=== PATIENT | female | born 1980 | race Caucasian/White ===

== ENCOUNTER → 2017-01-30 | Outpatient (REF) | payer OTHER ==
[2017-01-30 12:20] LABS: BASO % 0.6 % (0.0-1.0); EOS # 0.2 K/mm3 (0.0-0.50); EOS % 2.3 % (0.0-3.0); LYMPH # 1.7 K/mm3 (1.5-4.5); LYMPH % 24.9 % (24.0-44.0); MEAN CORPUSCULAR HGB CONC 33.1 g/dl (32.0-36.5); MEAN CORPUSCULAR VOLUME 87.6 fl (80.0-96.0); MONO # 0.4 K/mm3 (0.0-0.8); MONO % 5.5 % (0.0-5.0); NEUTROPHILS # 4.3 K/mm3 (1.8-7.7); NEUTROPHILS % 65.8 % (36.0-66.0); WHITE BLOOD COUNT 6.5 K/mm3 (4.0-10.0)
[2017-01-30 12:33] LABS: ALBUMIN 4.2 GM/DL (3.2-5.2); ALBUMIN/GLOBULIN RATIO 1.14 (1.00-1.93); ALKALINE PHOSPHATASE 81 U/L (45-117); ALT/SGPT 29 U/L (12-78); ANION GAP 9 MEQ/L (8-16); AST/SGOT 11 U/L (15-37); BILIRUBIN,TOTAL 0.5 MG/DL (0.2-1.0); BLOOD UREA NITROGEN 9 MG/DL (7-18); CARBON DIOXIDE LEVEL 25 MEQ/L (21-32); CHLORIDE LEVEL 105 MEQ/L (98-107); CHOLESTEROL LEVEL 210 MG/DL (<200); CREATININE FOR GFR 0.62 MG/DL (0.55-1.02); FREE T4 1.15 NG/DL (0.76-1.46); GLOMERULAR FILTRATION RATE > 60.0 (>60); GLUCOSE, FASTING 122 MG/DL (70-105); SODIUM LEVEL 139 MEQ/L (136-145); TOTAL PROTEIN 7.9 GM/DL (6.4-8.2); TRIGLYCERIDES LEVEL 93 MG/DL (<150)
== END ==
LOC: M LABDRAW1 11:21
PROVIDERS: ATTEND Family Medicine
DX: Z00.00 Encounter for general adult medical examination without abnormal findings (principal)

== ENCOUNTER → 2017-04-01 | Outpatient (REF) | payer OTHER, SELFPAY ==
[2017-04-01 16:05] LABS: MEAN CORPUSCULAR HEMOGLOBIN 29.7 pg (27.0-33.0); MEAN CORPUSCULAR HGB CONC 34.2 g/dl (32.0-36.5); RED CELL DISTRIBUTION WIDTH 13.2 % (11.5-14.5); WHITE BLOOD COUNT 9.5 K/mm3 (4.0-10.0)
[2017-04-01 16:32] LABS: ALBUMIN 3.9 GM/DL (3.2-5.2); ALBUMIN/GLOBULIN RATIO 1.03 (1.00-1.93); ALKALINE PHOSPHATASE 93 U/L (45-117); ALT/SGPT 26 U/L (12-78); ANION GAP 8 MEQ/L (8-16); AST/SGOT 9 U/L (15-37); BILIRUBIN,TOTAL 0.6 MG/DL (0.2-1.0); BLOOD UREA NITROGEN 12 MG/DL (7-18); CARBON DIOXIDE LEVEL 28 MEQ/L (21-32); CHLORIDE LEVEL 102 MEQ/L (98-107); CHOLESTEROL LEVEL 130 MG/DL (<200); CREATININE FOR GFR 0.56 MG/DL (0.55-1.02); FREE T4 1.04 NG/DL (0.76-1.46); GLOMERULAR FILTRATION RATE > 60.0 (>60); GLUCOSE, FASTING 115 MG/DL (70-105); POTASSIUM SERUM 3.9 MEQ/L (3.5-5.1); SODIUM LEVEL 138 MEQ/L (136-145); TOTAL PROTEIN 7.7 GM/DL (6.4-8.2); TRIGLYCERIDES LEVEL 68 MG/DL (<150)
== END ==
LOC: M LABDRAW1 15:36
PROVIDERS: ATTEND Family Medicine
DX: E55.9 Vitamin D deficiency, unspecified (principal); E78.5 Hyperlipidemia, unspecified; E11.9 Type 2 diabetes mellitus without complications

== ENCOUNTER 2017-08-13 23:22 | Emergency (ER) | payer BC, SELFPAY ==
[~2017-08-13] VITALS: Ht 180.3 cm; Wt 155.9 kg
[2017-08-13] MEDS ORDERED: HYDR12.55 PO (23:35)
[2017-08-13] MEDS ORDERED: MELO15TA4 PO (23:35)
[2017-08-13] MEDS ORDERED: LOSA25TA8 PO (23:35)
[2017-08-13] MEDS ORDERED: METF500T13 PO (23:35)
[2017-08-13] MEDS ORDERED: VITA100067 PO (23:35)
[2017-08-14 01:49] VITALS: BP 162/77
== END 2017-08-14 05:16 | disposition left against medical advice (07) ==
LOC: M ED 23:22
DX: M79.669 Pain in unspecified lower leg (principal); Z53.29 Procedure and treatment not carried out because of patient's decision for other reasons

== ENCOUNTER 2017-10-29 17:56 | Emergency (ER) | payer BC, OTHER ==
[~2017-10-29] VITALS: Ht 177.8 cm; Wt 152.6 kg
[~2017-10-29 17:56] MED LIST: HYDR12.55 PO; LOSA25TA8 PO; MELO15TA4 PO; METF500T13 PO; VITA100067 PO
[2017-10-29] MEDS ORDERED: IBUPROFEN 600 MG TAB PO ONE (20:00)
[2017-10-29] MEDS ORDERED: CYCL10TA PO (20:33)
[2017-10-29] MEDS ORDERED: IBUP-1022 PO (20:33)
[2017-10-29 20:38] VITALS: BP 165/86
[2017-10-29] MEDS ORDERED: CYCLOBENZAPRINE 10 MG TAB PO ONE (20:45)
--- NOTE | 2017-10-30 14:31 | REP ---
Clinical: thoracic pain. Technique: AP, lateral, and swimmers views. Findings: Alignment and kyphosis is maintained. Vertebral bodies intact. No acute fracture / compression injury or subluxation. No degenerative changes. Paravertebral soft tissues are normal. Impression: Normal thoracic spine series. Signed by Jordin Cohen MD 10/29/2017 10:57 P
== END 2017-10-29 20:50 | disposition home or self-care (01) ==
LOC: M ED 17:56
DX: S29.012A Strain of muscle and tendon of back wall of thorax, initial encounter (principal); V89.9XXA Person injured in unspecified vehicle accident, initial encounter; Y92.410 Unspecified street and highway as the place of occurrence of the external cause; Y93.89 Activity, other specified; Y99.8 Other external cause status; E11.9 Type 2 diabetes mellitus without complications; I10 Essential (primary) hypertension; Z79.899 Other long term (current) drug therapy; Z79.84 Long term (current) use of oral hypoglycemic drugs; Z88.0 Allergy status to penicillin; Z88.8 Allergy status to other drugs, medicaments and biological substances

== ENCOUNTER → 2018-06-20 | Outpatient (REF) | payer OTHER ==
[2018-06-20 10:21] LABS: HEMOGLOBIN 12.7 g/dl (12.0-15.5)
[2018-06-20 10:25] LABS: APPEARANCE, URINE CLOUDY (CLEAR); BACTERIA, URINE AUTO 1+ (NEGATIVE); BILIRUBIN, URINE AUTO NEGATIVE (NEGATIVE); BLOOD, URINE BLOOD 2+ (NEGATIVE); COLOR, URINE YELLOW (YELLOW); GLUCOSE, URINE (UA) AUTO 3+ mg/dL (NEGATIVE); KETONE, URINE AUTO TRACE mg/dL (NEGATIVE); LEUKOCYTE ESTERASE, URINE AUTO 3+ (NEGATIVE); MUCUS, URINE SMALL (NEGATIVE); NITRITE, URINE AUTO NEGATIVE (NEGATIVE); PROTEIN, URINE AUTO NEGATIVE (NEGATIVE); RBC, URINE AUTO 29 /HPF (0-3); SPECIFIC GRAVITY URINE AUTO 1.038 (1.002-1.035); SQUAMOUS EPITHELIAL CELL UR AU 3 /HPF (0-6); WBC, URINE AUTO 26 /HPF (0-3)
[2018-06-20 11:12] LABS: ALBUMIN 3.5 GM/DL (3.2-5.2); ALKALINE PHOSPHATASE 82 U/L (45-117); ALT/SGPT 25 U/L (12-78); ANION GAP 9 MEQ/L (8-16); AST/SGOT 9 U/L (7-37); BILIRUBIN,TOTAL 0.5 MG/DL (0.2-1.0); BLOOD UREA NITROGEN 17 MG/DL (7-18); CALCIUM LEVEL 8.7 MG/DL (8.5-10.1); CARBON DIOXIDE LEVEL 27 MEQ/L (21-32); CHLORIDE LEVEL 105 MEQ/L (98-107); CHOLESTEROL LEVEL 136 MG/DL (<200); FREE T4 0.88 NG/DL (0.76-1.46); GLOMERULAR FILTRATION RATE > 60.0 (>60); GLUCOSE, FASTING 184 MG/DL (70-100); HDL CHOLESTEROL 44 MG/DL (>40); LDL CHOLESTEROL 78.6 MG/DL (<100); NON-HDL-C 92 MG/DL; POTASSIUM SERUM 3.9 MEQ/L (3.5-5.1); SODIUM LEVEL 141 MEQ/L (136-145); TRIGLYCERIDES LEVEL 67 MG/DL (<150)
[2018-06-20 11:17] LABS: MALB URINE SIEMENS 16.7 MG/L; MAU/CREAT RATIO 10.7 MCG/MG (0.0-30.0)
[2018-06-20 11:19] LABS: VITAMIN B12 LEVEL 361 PG/ML (247-911)
[2018-06-20 11:43] LABS: ESTIMATED AVERAGE GLUCOSE 163 MG/DL (60-110); HEMOGLOBIN A1c 7.3 %
== END ==
LOC: M LABDRAW1 09:50
DX: E11.9 Type 2 diabetes mellitus without complications (principal); E78.5 Hyperlipidemia, unspecified; E66.01 Morbid (severe) obesity due to excess calories

== ENCOUNTER → 2019-03-20 | Outpatient (REF) | payer BC ==
[~2019-03-20] MED LIST changes: +CYCL10TA PO; +IBUP-1022 PO; +LOSA25TA14 PO; -LOSA25TA8 PO; +MELO15TA28 PO; -MELO15TA4 PO
[2019-03-20 12:29] LABS: ALBUMIN 3.8 GM/DL (3.2-5.2); ALT/SGPT 26 U/L (12-78); BILIRUBIN,TOTAL 0.4 MG/DL (0.2-1.0); BLOOD UREA NITROGEN 19 MG/DL (7-18); CALCIUM LEVEL 9.3 MG/DL (8.5-10.1); CARBON DIOXIDE LEVEL 25 MEQ/L (21-32); CHLORIDE LEVEL 105 MEQ/L (98-107); CHOLESTEROL LEVEL 147 MG/DL (<200); CHOLESTEROL RISK RATIO 3.127 (<5); CREATININE FOR GFR 0.63 MG/DL (0.55-1.30); GLOMERULAR FILTRATION RATE > 60.0 (>60); GLUCOSE, FASTING 168 MG/DL (70-100); HDL CHOLESTEROL 47 MG/DL (>40); HEMATOCRIT 40.8 % (36.0-47.0); HEMOGLOBIN 13.2 g/dl (12.0-15.5); LDL CHOLESTEROL 90 MG/DL (<100); NON-HDL-C 100 MG/DL; SODIUM LEVEL 137 MEQ/L (136-145); TOTAL PROTEIN 7.6 GM/DL (6.4-8.2); TRIGLYCERIDES LEVEL 49 MG/DL (<150)
[2019-03-20 12:37] LABS: TOTAL 25(OH) VITAMIN D 16.2 NG/ML (30.0-100.0)
[2019-03-20 12:38] LABS: VITAMIN B12 LEVEL 391 PG/ML (247-911)
== END ==
LOC: M LABDRAW1 11:53
PROVIDERS: ATTEND Family Medicine
DX: E11.9 Type 2 diabetes mellitus without complications (principal); E55.9 Vitamin D deficiency, unspecified; E66.01 Morbid (severe) obesity due to excess calories; I10 Essential (primary) hypertension; E78.5 Hyperlipidemia, unspecified

== ENCOUNTER 2019-07-02 21:29 | Emergency (ER) | payer BC, SELFPAY ==
[~2019-07-02] VITALS: Ht 180.3 cm; Wt 159.7 kg
[2019-07-02] MEDS ORDERED: ATOR40TA75 PO (21:51)
[2019-07-02] MEDS ORDERED: SERT-138 PO (21:51)
[2019-07-02] MEDS ORDERED: GLIP5TAB8 PO (21:51)
[2019-07-02] MEDS ORDERED: LOSA50TA88 PO (21:51)
[2019-07-02] MEDS ORDERED: HYDR25TAB PO (21:51)
[2019-07-02 21:58] LABS: BASO # 0.1 10^3/uL (0.0-0.2); BASO % 0.8 % (0.0-1.0); EOS # 0.3 10^3/uL (0.0-0.50); HEMATOCRIT 41.8 % (36.0-47.0); HEMOGLOBIN 13.9 g/dl (12.0-15.5); LYMPH # 2.7 10^3/uL (1.5-4.5); LYMPH % 21.2 % (24.0-44.0); MEAN CORPUSCULAR HEMOGLOBIN 29.8 pg (27.0-33.0); MEAN CORPUSCULAR HGB CONC 33.3 g/dl (32.0-36.5); MEAN CORPUSCULAR VOLUME 89.5 fl (80.0-96.0); MONO # 1.3 10^3/uL (0.0-0.8); MONO % 10.1 % (0.0-5.0); NEUTROPHILS # 8.3 10^3/uL (1.8-7.7); NEUTROPHILS % 65.5 % (36.0-66.0); PLATELET COUNT, AUTOMATED 316 10^3/uL (150-450); RED BLOOD COUNT 4.67 10^6/uL (4.00-5.40); WHITE BLOOD COUNT 12.7 10^3/uL (4.0-10.0)
[2019-07-02 22:21] LABS: BLOOD UREA NITROGEN 21 MG/DL (7-18); CALCIUM LEVEL 8.9 MG/DL (8.5-10.1); CARBON DIOXIDE LEVEL 26 MEQ/L (21-32); CHLORIDE LEVEL 104 MEQ/L (98-107); CK-MB VALUE MASS 1.4 NG/ML (<3.6); CPK CREATINE PHOSPHOKINASE 111 U/L (26-192); CREATININE FOR GFR 0.71 MG/DL (0.55-1.30); GLOMERULAR FILTRATION RATE > 60.0 (>60); GLUCOSE, FASTING 159 MG/DL (70-100); MB/CK RELATIVE INDEX 1.26 (< OR =4); POTASSIUM SERUM 3.7 MEQ/L (3.5-5.1); SODIUM LEVEL 139 MEQ/L (136-145); TROPONIN I < 0.02 NG/ML (< 0.10)
[2019-07-03 01:41] LABS: HCG, SERUM QUALITATIVE NEGATIVE (NEGATIVE)
[2019-07-03] MEDS ORDERED: NS 1,000 ML IV ONE (01:45)
[2019-07-03] MEDS ORDERED: ISOVUE-370 76% 100ML VIAL (Q9967) As Ordered ONE (01:54)
--- NOTE | 2019-07-03 02:47 | REPVR ---
EXAM: CT Angiography Chest With Contrast EXAM DATE/TIME: 07/03/2019 1:44 AM CLINICAL HISTORY: 38 years old, female; Chest pain; Type not specified; Additional info: Cp TECHNIQUE: Imaging protocol: Axial computed tomographic angiography images of the chest with intravenous contrast using CT angiography protocol. 3D rendering: MIP reconstructed images were created and reviewed. Radiation optimization: All CT scans at this facility use at least one of these dose optimization techniques: automated exposure control; mA and/or kV adjustment per patient size (includes targeted exams where dose is matched to clinical indication); or iterative reconstruction. Contrast material: ISO; Contrast volume: 75 ml; Contrast route: AC; COMPARISON: CR Chest, 2 view PA, Lat 09/17/2013 6:41 PM Study limitations: Evaluation, particularly for pulmonary emboli is compromised by excessive motion, resulting in misregistration artifacts. In addition pulmonary arterial contrast opacification distal to the level of the karin is suboptimal. FINDINGS: PULMONARY ARTERIES: Enhancement within the pulmonary arteries to the proximal segmental levels demonstrate some artifact but no evidence for acute pulmonary embolus. Beyond the proximal segmental levels suboptimal opacification and motion artifact limit reliable evaluation or exclusion of distal pulmonary emboli. Diameter of the main pulmonary trunk is 3 cm. HEART AND AORTA: There is mild cardiac enlargement. No pericardial effusion. Evaluation of the aortic root and ascending thoracic aorta is compromised by motion artifact. No thoracic aortic aneurysm or dissection is seen otherwise. Visualized proximal great vessels within the superior mediastinum are preserved. MEDIASTINUM: No mediastinal gas. Evaluation of the thyroid is compromised by artifact, however bilateral thyroid nodules are suspected up to 2.5 cm on the left. Correlation with clinical and laboratory findings would be helpful. Nonemergent ultrasound is advised for further assessment of the thyroid gland. Further management of the ITN after thyroid ultrasound, including fine-needle aspiration, should be based on ultrasound findings. No mediastinal hematoma. No mediastinal or hilar lymphadenopathy by size criteria. No periesophageal gas or inflammatory change. LUNGS: Evaluation of the lungs is compromised by motion. The right diaphragm is elevated compared to the left. No pneumothorax, pleural effusion or consolidation seen. Dependent and basal ground glass and reticular opacities noted, likely secondary to atelectasis. No suspicious pulmonary parenchymal mass. No bronchiectasis or peribronchial thickening. UPPER ABDOMEN: No free air or free fluid within the visualized uppermost abdomen. There is no hiatal hernia. MSK AND BODY WALL: Degenerative changes of the thoracic spine. No acute fracture seen. 8mm sclerotic lesion noted within the T5 vertebral body of uncertain significance but possibly a bone island. IMPRESSION: Significant study limitation discussed above. No evidence for central pulmonary emboli to the proximal segmental levels. Cardiac enlargement. Atelectasis. Bilateral suspected thyroid nodules. Nonemergent recommendations discussed above. Other incidental findings discussed above. Electronically signed by: Sanjay Campa On 07/03/2019 02:46:25 AM
[2019-07-03 05:31] LABS: CK-MB VALUE MASS 1.1 NG/ML (<3.6); CPK CREATINE PHOSPHOKINASE 88 U/L (26-192); MB/CK RELATIVE INDEX 1.25 (< OR =4); TROPONIN I < 0.02 NG/ML (< 0.10)
--- NOTE | 2019-07-03 05:36 | ECGEPIP ---
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
[2019-07-03 05:37] VITALS: BP 130/62
--- NOTE | 2019-07-03 07:21 | ED PDOC ---
Post-Departure Follow-Up dr ornelas faxed formal report of cta chest for fu Nesha Carrillo MD Jul 03, 2019 07:21
--- NOTE | 2019-07-03 13:12 | ECGEPIP ---
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
== END 2019-07-03 05:44 | disposition home or self-care (01) ==
LOC: M ED 21:29
DX: R07.89 Other chest pain (principal); E11.9 Type 2 diabetes mellitus without complications; E78.5 Hyperlipidemia, unspecified; F33.9 Major depressive disorder, recurrent, unspecified; M19.90 Unspecified osteoarthritis, unspecified site; E66.9 Obesity, unspecified; Z79.899 Other long term (current) drug therapy; Z79.84 Long term (current) use of oral hypoglycemic drugs; Z88.0 Allergy status to penicillin; Z88.8 Allergy status to other drugs, medicaments and biological substances; Z87.891 Personal history of nicotine dependence
CPT/HCPCS: 71275; 80048; 82550; 82553; 84484; 84703; 85025; 93005; 96360; 96361; 99285; Q9967

== ENCOUNTER → 2019-07-31 | Outpatient (CLI) | payer BC ==
[~2019-07-31] MED LIST changes: +ATOR40TA75 PO; +GLIP5TAB8 PO; +HYDR25TAB PO; +LOSA50TA88 PO; +SERT-138 PO
--- NOTE | 2019-07-31 10:21 | REP ---
Thyroid ultrasound for thyroid nodules identified by recent CT: The right thyroid lobe measures 5.4 x 2.2 x 2.3 cm. The left thyroid lobe measures 5.6 x 2.7 x 2.3 cm. The right and left lobes are enlarged. The isthmus measures 2.9 mm thickness which is upper normal. Thyroid right lobe: There is a solid nodule in the upper pole measuring 1.3 x 1.1 x 0.8 cm. There is a small cyst at the mid pole measuring 0.4 x 0.5 x 0.4 cm. There is a multi septated cyst in the lower pole measuring 2.2 x 1.8 x 1.6 cm. Thyroid left lobe: There is a multi septated cyst in the mid/lower pole measuring 3.8 x 2.0 x 2.8 cm. There is a heterogeneous nodule in the lower pole measuring 1.0 x 0.8 x 1.5 cm. There is a second heterogeneous nodule in the lower pole measuring 0.8 x 0.8 x 1.1 cm. Half impression: Enlarged right and left thyroid lobes. Bilateral nodules and cysts as described. Electronically Signed by Trell Damon MD 07/31/2019 10:13 A
[2019-07-31 10:29] LABS: HEMATOCRIT 40.1 % (36.0-47.0); HEMOGLOBIN 13.3 g/dl (12.0-15.5)
[2019-07-31 10:59] LABS: ALBUMIN 3.9 GM/DL (3.2-5.2); ALT/SGPT 30 U/L (12-78); BILIRUBIN,TOTAL 0.5 MG/DL (0.2-1.0); BLOOD UREA NITROGEN 16 MG/DL (7-18); CALCIUM LEVEL 9.1 MG/DL (8.5-10.1); CARBON DIOXIDE LEVEL 25 MEQ/L (21-32); CHLORIDE LEVEL 105 MEQ/L (98-107); CHOLESTEROL LEVEL 150 MG/DL (<200); CREATININE FOR GFR 0.62 MG/DL (0.55-1.30); GLOMERULAR FILTRATION RATE > 60.0 (>60); GLUCOSE, FASTING 100 MG/DL (70-100); HDL CHOLESTEROL 50 MG/DL (>40); LDL CHOLESTEROL 86 MG/DL (<100); NON-HDL-C 100 MG/DL; POTASSIUM SERUM 3.7 MEQ/L (3.5-5.1); SODIUM LEVEL 141 MEQ/L (136-145); TOTAL PROTEIN 7.3 GM/DL (6.4-8.2); TRIGLYCERIDES LEVEL 70 MG/DL (<150)
[2019-07-31 11:06] LABS: TOTAL 25(OH) VITAMIN D 19.9 NG/ML (30.0-100.0)
[2019-07-31 11:07] LABS: VITAMIN B12 LEVEL 296 PG/ML (247-911)
--- NOTE | 2019-07-31 15:16 | REP ---
REASON FOR EXAM: History of arthritis and previous right ankle fracture. No history of carcinoma. After the intravenous administration of 22.0 millicuries of technetium 99m MDP, a total body bone scan was obtained. There is a degenerative type uptake pattern seen in the shoulders, sternoclavicular joints, knees, and feet. The uptake pattern seen on the right foot is that of increased activity compared to the left, which appears to be limited to the ankle region. In the neck, there is a focus of increased radionuclide activity consistent with cervical spine degenerative change. No neck soft tissue activity is identified on the lateral views. Slight increased radionuclide accumulation is seen in the region of the right facet joint of all three. IMPRESSION: 1. Degenerative type uptake patterns as described above. 2. Consider followup with plain radiographic evaluation of the affected joints. Electronically Signed by Nasir Medina DO 07/31/2019 03:57 P
== END ==
LOC: M RAD 08:58
PROVIDERS: ATTEND Family Medicine
DX: M89.9 Disorder of bone, unspecified (principal); E04.2 Nontoxic multinodular goiter
CPT/HCPCS: 36415; 76536; 78306; 80053; 80061; 82306; 82607; 83036; 85014; 85018; A9503

== ENCOUNTER → 2020-01-11 | Outpatient (REF) | payer BC | LOC: M LAB REF 13:02 | PROVIDERS: ATTEND Internal Medicine Endocrinology, Diabetes & Metabolism | DX: E04.2 Nontoxic multinodular goiter (principal) ==